=== PATIENT | female | born 1985 | race Caucasian/White ===

== ENCOUNTER 2018-06-02 15:59 | Outpatient (CLI) | payer BC, SELFPAY ==
[2018-06-02 17:49] LABS: TSH 2.83 uIU/mL (0.358-3.74)
== END 2018-06-02 16:00 ==
PROVIDERS: PCP Nurse Practitioner Adult Health; Visit Provider Midwife
DX: E03.9 Hypothyroidism, unspecified (principal)
CPT/HCPCS: 36415; 84443

== ENCOUNTER 2018-06-02 16:06 | Outpatient (REF) | payer BC, SELFPAY | END 2018-06-02 16:07 | LOC: LBN 16:06 | PROVIDERS: PCP Nurse Practitioner Adult Health; Visit Provider Midwife | DX: O99.820 Streptococcus B carrier state complicating pregnancy (principal) | CPT/HCPCS: 87081 ==

== ENCOUNTER 2018-06-22 02:01 | Outpatient (CLI) | payer BC, SELFPAY ==
--- NOTE | 2018-06-22 15:46 | DI.REPORT_ITS ---
Many abnormalities cannot be diagnosed. A normal exam does not exclude a congenital anomaly. Radiology No. LMP: Exam Date: 06/22/18 [facility] wks days on EDC ([facility]) 06/30/18 Confirmed: HISTORY: EFW, WESLY, [phone], H/O OLIGOHYDRAMNIOS IN PRIOR ---- PREDICTED GESTATIONAL AGE NUMBER 38.6 weeks with a range of 37.6 week to 39.6 weeks. 1 Determined by__[id number]___LMP___HISTORY Info. pertaining to fetus # PLACENTA PRESENTATION Grade II Cephalic__X_ Anterior_X__Posterior___ Breech____ Right Left Transverse(head right___ Fundal___Low-lying___Previa___ Transverse(head left___ Varying BIOMETRY AMNIOTIC FLUID BPD: 95 mm 38.5 weeks Normal HC: 336 mm 38.5 weeks AC: 345 mm 38.3 weeks FL: 76 mm 39 weeks AMNIOTIC FLUID INDEX >26 WK CRL: mm weeks Cisterna Magna: mm CI: RUQ:__3.2____LUQ____0____ Cerebellum: cm EFW: 3535 grams 62ND Percentile RLQ:__3.4____LLQ 2.6__ Total: 9.1___cms Composite AGE= 38.5 wks EDC by US__07/01/18 BIOPHYSICAL PROFILE ANATOMY IDENTIFIED SCORE 0/2 Heart: 4-Chamber___Rate:BPM__141___ LVOT: RVOT: Amniotic Fluid(>2cms)____ Stomach: Kidneys: Respirations (>30 secs) Bladder: Post. Fossa: Body Flex/Extension 3 vessel cord: Ventricles: cord insertion: Lips:____ Extremity Flex/Extension spinal morphology: Nose: Total Score= Palate: NS=not seen Please see the OB ultrasound worksheet for complete details.
== END 2018-06-22 02:02 ==
PROVIDERS: PCP Nurse Practitioner Adult Health; Visit Provider Advanced Practice Midwife
DX: O09.299 Supervision of pregnancy with other poor reproductive or obstetric history, unspecified trimester (principal); Z36.89 Encounter for other specified antenatal screening
CPT/HCPCS: 76816

== ENCOUNTER 2018-06-28 10:05 | Outpatient (CLI) | payer BC, SELFPAY ==
[2018-06-28 10:41] LABS: Abs Immature Grans 0.09 k/cumm (0.0-0.09); Absolute Basophil Count 0.02 k/cumm (0.0-0.2); Absolute Lymphocyte Count 2.27 k/cumm (1.2-3.4); Absolute Monocyte Count 0.88 k/cumm (0.11-0.7); Absolute Neutrophil Count 8.75 k/cumm (1.2-6.7); Basophils % 0.2; Eosinophils % 0.7; HCT 34.2 % (36.0-46.0); HGB 11.2 g/dL (12.0-15.5); Immature Grans % 0.7; Lymphocytes % 18.8; Mean Corp. HGB Concentration 32.7 g/dL (32.0-36.0); Mean Corpuscular Hemoglobin 27.9 pg (27.0-33.0); Mean Corpuscular Volume 85.3 fL (80-95); Mean Platelet Volume 10.2 fL (8.0-11.0); Monocytes % 7.3; Neutrophils % 72.3; Platelet Count 179 x1000/uL (130-400); RBC 4.01 m/cumm (4.00-5.20); RBC Distribution Width 13.8 % (11.7-14.6)
[2018-06-28 10:44] LABS: Absolute Eosinophil Count 0.08 k/cumm (0.0-0.7)
== END 2018-06-28 10:25 ==
PROVIDERS: PCP Nurse Practitioner Adult Health; Visit Provider Obstetrics & Gynecology
DX: Z34.91 Encounter for supervision of normal pregnancy, unspecified, first trimester (principal)
CPT/HCPCS: 36415; 86850; 86900; 86901; 85025

== ENCOUNTER 2018-06-29 11:18 | Inpatient (IN) | payer BC, SELFPAY ==
[2018-06-29 09:56] VITALS: BP 117/73; PULSE 63; RESP 14; TEMP 36; O2SAT 99
[2018-06-29 09:58] VITALS: BP 117/73; PULSE 63; RESP 14; TEMP 36; O2SAT 99
[2018-06-29] MEDS: Lactated Ringers 1,000 ML 125 ML IV ×2 (10:18→11:31)
[2018-06-29] MEDS: Sodium Citrate 30 ML CUP PO (10:21)
[2018-06-29 12:13] VITALS: BP 93/60; PULSE 76; RESP 23; TEMP 36.6; O2SAT 99
--- NOTE | 2018-06-29 12:14 | W.PM.OP ---
Operative Note Date of procedure: 06/29/18 Pre-op diagnosis: Prior desires repeat Post-op diagnosis: same Procedure: RCS LTCS Surgeon: Cely Ornelas Anesthesia: spinal Estimated blood loss (mL): 400 Pathology: none sent Complications: None Patient was transported to: PACU Patient's condition: stable Implants: NONE
[2018-06-29 12:18] VITALS: BP 94/56; PULSE 80; RESP 27; TEMP 36.5; O2SAT 99
--- NOTE | 2018-06-29 12:18 | W.PM.OP ---
Operative Note Date of procedure: 06/29/18 Pre-op diagnosis: Prior desires repeat Post-op diagnosis: same Procedure: Prior section The patient was taken to the operating room where she was properly identified. She was placed in a sitting position on the operating table and spinal anesthesia was induced without difficulty. Patient was then placed on the operating table in a dorsal supine position with a left lateral tilt. heart tones were established by Doppler and a Galo catheter was then placed. The patient was then prepped and draped in the normal sterile fashion. After establishing adequate spinal anesthesia a Pfannenstiel incision was made approximately 2 cm above the symphysis pubis carried down to the underlying fascia the fascia was then nicked in the midline and extended sharply bilaterally. The inferior aspect of the fascia was grasped bilaterally with the Mando clamps tented up and the rectus muscles dissected off sharply. Attention was then turned to the superior aspect and again in a similar fashion the fascia was grasped bilaterally with a Mando clamps tented up and the rectus muscles dissected off sharply the rectus muscles were in the midline the peritoneum was entered bluntly and the cyst was extended superiorly and inferiorly with good visualization of the bladder. The bladder blade was then positioned and the vesicouterine peritoneum was grasped with pickups and entered sharply and the bladder flap was created digitally and sharply. The bladder blade was repositioned and the lower uterine was transversely incised and the underlying uterine cavity and membranes were entered and the incision extended bilaterally bluntly. The catheter was then atraumatically shoulders and body followed with ease ?2 and handed off to the waiting pediatric and D. The uterus was exteriorized the placenta was manually expressed the uterus was cleared of all clots and debris the uterus was then closed with 0 Vicryl in a running locked fashion and a second imbricating layer was used to achieve hemostasis the uterus was returned to the abdomen the gutters were cleared of all clots and debris. Bladder blade was repositioned the uterus to be inspected and found to be hemostatic the peritoneum was closed with 2-0 Vicryl and fashion the muscles were reapproximated with 0 Vicryl in an interrupted fashion the muscles and subfascial layer were inspected and found to be hemostatic. The fascia was closed from each apices with 0 Vicryl in a running fashion and tied in the midline. The subcu cuticular layer was copiously irrigated requiring a small amount of Bovie cautery to achieve hemostasis. The subcuticular layer was then closed with 3 oh plain in a running fashion and the skin was closed with 4-0 Monocryl in a subcuticular fashion dressing was then applied sponge lap needle and sponge count were correct ?2 and the patient was taken to recovery in stable condition Surgeon: Cely Ornelas Anesthesia: spinal Estimated blood loss (mL): 400 Pathology: none sent Patient was transported to: PACU Patient's condition: stable Implants: NONE
[2018-06-29 12:23] VITALS: BP 104/51; PULSE 62; RESP 28; TEMP 36.5; O2SAT 98
[2018-06-29 12:38] VITALS: BP 106/55; PULSE 60; RESP 28; TEMP 36.5; O2SAT 97
[2018-06-29] MEDS: Ketorolac 30 MG/ML VIAL IVP ×2 (14:53→21:24)
[2018-06-29] MEDS: Normal Saline Flush 10 ML SYR IV ×2 (14:56→21:25)
[2018-06-30] MEDS: Normal Saline Flush 10 ML SYR IV (01:23)
[2018-06-30 07:24] LABS: HGB 9.8 g/dL (12.0-15.5); Mean Corp. HGB Concentration 31.6 g/dL (32.0-36.0); Mean Corpuscular Hemoglobin 27.3 pg (27.0-33.0); Mean Corpuscular Volume 86.4 fL (80-95); Mean Platelet Volume 10.2 fL (8.0-11.0); Platelet Count 162 x1000/uL (130-400); RBC 3.59 m/cumm (4.00-5.20); RBC Distribution Width 13.9 % (11.7-14.6); White Blood Cell Count 15.07 k/cumm (4.4-10.8)
--- NOTE | 2018-06-30 09:50 | W.PM.PROGNOT ---
Date of service: 06/30/18 Time of Service: 09:50 Assessment and Plan (1) S/P section: Current visit: Yes Status: Acute Doing well. May shower later today and remove dressing. Encourage ambulation Continue routine post op care. Subjective Patient reports: no flatus Interval history since last seen: Doing well this morning Pain well controlled. Not yet ambulatory Tolerating regular diet. No nausea or vomiting. Exam Narrative Exam Narrative: Abdomen - Soft. Appropriately tender. Dressing in place. C/D / Objective Objective Clinical Data: Abnormal lab results 06/30/18 Range/Units 06:30 WBC 15.07 H (4.4-10.8) k/cumm RBC 3.59 L (4.00-5.20) m/cumm Hgb 9.8 L (12.0-15.5) g/dL Hct 31.0 L (36.0-46.0) % MCHC 31.6 L (32.0-36.0) g/dL Vital Signs Temp 36.5 C 06/29/18 12:38 Pulse 60 06/29/18 12:38 Resp 28 H 06/29/18 12:38 BP 106/55 L 06/29/18 12:38 Pulse Ox 97 06/29/18 12:38 Intake & Output 06/29/18 06/29/18 06/30/18 11:59 23:59 11:59 Intake Total 1050 / 1050 700 / 700 Output Total 75 / 75 400 / 400 600 / 600 Balance 975 / 975 300 / 300 -600 / -600 Weight 81.1 kg Intake: IV 1050 / 1050 700 / 700 Output: Urine 75 / 75 600 / 600 Estimated Blood Loss 400 / 400 Other: Urine Color Yellow Pale Urine Appearance Clear Clear Emesis Description None Laboratory Results WBC 15.07 k/cumm (4.4-10.8) H 06/30/18 06:30 RBC 3.59 m/cumm (4.00-5.20) L 06/30/18 06:30 Hgb 9.8 g/dL (12.0-15.5) L 06/30/18 06:30 Hct 31.0 % (36.0-46.0) L 06/30/18 06:30 MCV 86.4 fL (80-95) 06/30/18 06:30 MCH 27.3 pg (27.0-33.0) 06/30/18 06:30 MCHC 31.6 g/dL (32.0-36.0) L 06/30/18 06:30 RDW 13.9 % (11.7-14.6) 06/30/18 06:30 Plt Count 162 x1000/uL (130-400) 06/30/18 06:30 MPV 10.2 fL (8.0-11.0) 06/30/18 06:30 Patient ABO/Rh A Negative 06/29/18 10:05 Antibody Screen Negative 06/29/18 10:05
[2018-06-30] MEDS: Ibuprofen 600 MG TAB PO (21:14)
[2018-06-30] MEDS: Docusate Sodium 100 MG CAP PO (21:14)
[2018-07-01] MEDS: Levothyroxine 88 MCG TAB PO (06:23)
[2018-07-01] MEDS: Prenatal Multivitamin w/CA,FE TAB 1 TAB PO (08:11)
[2018-07-01] MEDS: Ibuprofen 600 MG TAB PO (08:12)
== END 2018-07-01 09:31 | disposition home or self-care (01) | DRG 766 ==
LOC: PDS 13:31 → OBS 16:16
PROVIDERS: Admitting Provider Obstetrics & Gynecology; PCP Nurse Practitioner Adult Health; Visit Provider Obstetrics & Gynecology
PROC: 10D00Z1 Extraction of Products of Conception, Low, Open Approach (ICD-10-PCS; CPT 59514; principal; 2018-06-29 07:30)
DX: O34.211 Maternal care for low transverse scar from previous cesarean delivery (principal); Z37.0 Single live birth; Z98.891 History of uterine scar from previous surgery; Z3A.39 39 weeks gestation of pregnancy
CPT/HCPCS: 59514; 36415; 85027; 86850; 86900; 86901; 99232; J0690; J1200; J1885; J2405; J2590; J3010

== ENCOUNTER 2018-08-25 13:53 | Outpatient (CLI) | payer OTHER, SELFPAY ==
[2018-08-25 15:20] LABS: TSH (W/Ref FT4) 3.48 uIU/mL (0.358-3.74)
== END 2018-08-25 14:13 ==
PROVIDERS: PCP Nurse Practitioner Adult Health; Visit Provider Obstetrics & Gynecology
DX: E03.9 Hypothyroidism, unspecified (principal)
CPT/HCPCS: 36415; 84443

== ENCOUNTER 2018-08-25 17:01 | Outpatient (REF) | payer OTHER, SELFPAY ==
--- NOTE | 2018-08-25 13:45 | PAPFT_PTH ---
PATIENT: PHIL LAM LOC: [facility] U#:[id number] AGE/SX: 32/F ROOM: RE08/25/[address]: Cely Ornelas MD : [id number] BED: DIS: 08/25/2018 SPEC #: [id number] RECD: 08/25/18 17:54 STATUS: JONATHAN REMalaika #: [id number] ALYSON: 08/25/18 13:[address]: Cely Ornelas DEPT: [facility] Cytology RECD BY: Katty Love ENTERED: 08/25/18 17:54 SP TYPE: PAPFT OTHR DR: Landy Almanza Tissues: 1 - CX/ENDOCX FOR PAP SMEARS Procedures: PAP THIN PREP/[facility] Screening HPV DNA PROBE Comments: [id number]
== END 2018-08-25 17:21 ==
LOC: LBN 17:01
PROVIDERS: PCP Nurse Practitioner Adult Health; Visit Provider Obstetrics & Gynecology
DX: Z12.4 Encounter for screening for malignant neoplasm of cervix (principal); Z11.51 Encounter for screening for human papillomavirus (HPV)
CPT/HCPCS: 88142; 87624

== ENCOUNTER 2018-09-02 11:23 | Outpatient (REF) | payer OTHER, SELFPAY ==
[2018-09-05 16:01] LABS: Chlamydia Result Negative; GC Result Negative; Specimen Description CERVIX
== END 2018-09-02 11:43 ==
LOC: LBN 11:23
PROVIDERS: PCP Nurse Practitioner Adult Health; Visit Provider Nurse Practitioner Family
DX: Z11.3 Encounter for screening for infections with a predominantly sexual mode of transmission (principal)
CPT/HCPCS: 87491; 87591